=== PATIENT | male | born 1995 | race Caucasian/White ===

== ENCOUNTER → 2024-12-14 13:21 | Outpatient (CLI) | payer OTHER, SELFPAY ==
[2024-12-14 15:46] LABS: Urine Chlamydia NOT DETECTED; Urine N gonorrhoeae NOT DETECTED
== END ==
PROVIDERS: Visit Provider Nurse Practitioner Family
DX: Z11.3 Encounter for screening for infections with a predominantly sexual mode of transmission (principal); Z20.2 Contact with and (suspected) exposure to infections with a predominantly sexual mode of transmission; R30.0 Dysuria
CPT/HCPCS: 87210; 87491; 87591

== ENCOUNTER → 2024-12-14 13:41 | Outpatient (CLI) | payer OTHER, SELFPAY ==
[2024-12-15 04:41] LABS: RPR Screen Non Reactive (Non Reactive)
[2024-12-15 15:29] LABS: Hepatitis B Surface Antigen NEGATIVE s/c (NEGATIVE)
[2024-12-15 15:51] LABS: Hep C Virus Ab w/Reflex Quant NEGATIVE s/c (NEGATIVE)
[2024-12-15 17:44] LABS: HIV 1 & 2 Ab/Ag 4th Gen Combo NEGATIVE (NEGATIVE)
== END ==
LOC: LAB 13:42
PROVIDERS: Referring Provider Nurse Practitioner Family; Visit Provider Nurse Practitioner Family
DX: Z20.2 Contact with and (suspected) exposure to infections with a predominantly sexual mode of transmission (principal); Z11.3 Encounter for screening for infections with a predominantly sexual mode of transmission; R30.0 Dysuria
CPT/HCPCS: 36415; 86592; 86695; 86696; 86803; 87210; 87340; 87389; 87491; 87591